=== PATIENT | male | born 1955 | race Caucasian/White ===

== ENCOUNTER 2022-02-20 10:22 | Inpatient (IN) ==
[2022-02-20] MEDS ORDERED: 0.9 % Sodium Chloride 1,000 ML IV ONE ×2 (10:39→11:31)
[2022-02-20 11:15] LABS: Basophils % 0.3 %; Hematocrit 38.7 % (37.5-50.1); Hemoglobin 12.8 g/dL (12.9-16.9); Immature Granulocytes % 0.9 % (0-4); Lymphocytes # 1.2 K/mcL (0.6-4.6); Lymphocytes % 7.9 %; Mean Corpuscular HGB Conc 33.1 g/dL (31.6-35.5); Mean Corpuscular Hemoglobin 31.3 pg (28.0-33.3); Mean Corpuscular Volume 94.6 fL (83.0-100.0); Mean Platelet Volume 9.8 fL (9.4-12.4); Monocytes # 2.2 K/mcL (0.0-1.3); Monocytes % 14.6 %; Platelet Count 146 K/mcL (140-400); Red Blood Count 4.09 M/mcL (4.19-5.50); Red Cell Distribution Width 14.5 % (11.5-14.5); Segmented Neutrophils % 76.3 %; White Blood Count 14.9 K/mcL (4.3-11.1)
[2022-02-20 11:17] LABS: Neutrophils # 11.4 K/mcL (1.6-8.9)
[2022-02-20 11:22] LABS: INR 1.7; Prothrombin Time 18.4 Seconds (9.4-12.1)
[2022-02-20 11:23] LABS: Bilirubin,Urine Moderate (Negative); Blood,Urine Moderate (Negative); Clarity,Urine Turbid (Clear); Color,Urine Orange (Yellow); Glucose,Urine (UA) Normal (Normal); Ketones,Urine 80 mg/dL (Negative); Leukocyte Esterase,Urine Small (Negative); Nitrite,Urine Positive (Negative); Protein,Urine >=300 mg/dL (Neg-Trace); Specific Gravity,Urine >= 1.030 (1.010-1.025); Urobilinogen,Urine Normal (Normal)
[2022-02-20 11:25] LABS: Activated Partial Thrombo Time 40.2 Seconds (26.0-36.0)
[2022-02-20 11:30] LABS: Bacteria,Urine Many per hpf (None-Few); RBC,Urine 15-30 per hpf (0-3); Squamous Epithelial Cell,Urine Few per hpf (None-Few); WBC,Urine 50-100 per hpf (0-3)
[2022-02-20] MEDS ORDERED: cefTRIAXone 1,000 MG in 0.9 % Sodium Chloride Mini Bag 100 ML IVPB ONE (11:31)
[2022-02-20 11:34] LABS: Alanine Aminotransferase 4 Units/L (7-52); Albumin/Globulin Ratio 0.9 (1.1-2.2); Alkaline Phosphatase 65 Units/L (34-104); Aspartate Amino Transferase 9 Units/L (13-39); BUN/Creatinine Ratio 15 (6-26); Bilirubin,Total 0.9 mg/dL (0.3-1.0); Blood Urea Nitrogen 21 mg/dL (8-23); Calcium 8.4 mg/dL (8.6-10.3); Carbon Dioxide 27 mEq/L (23-29); Chloride 100 mEq/L (98-107); Globulin 3.2 g/dL (2.4-3.5); Glucose 172 mg/dL (70-105); Magnesium 1.5 mg/dL (1.6-2.6); Osmolality,Calculated 291 (280-300); Phosphorous 3.5 mg/dL (2.7-4.5); Sodium 137 mEq/L (136-145); Total Protein 6.2 g/dL (6.4-8.9); Troponin I < 0.03 ng/mL (< 0.04); eGFR For African Americans > 60 (> 60); eGFR For Non-African Americans 50 (> 60)
[2022-02-20] MEDS ORDERED: Naloxone 0.4 MG/ML INJ IVP PRN (13:43)
[2022-02-20] MEDS ORDERED: Ondansetron 4 MG/2 ML VIAL IVP PRN (13:43)
[2022-02-20] MEDS ORDERED: 0.9 % Sodium Chloride 1,000 ML IVC SCH (13:45)
[2022-02-20] MEDS ORDERED: Dextrose 4 GM Chewable Tablets PO PRN ×2 (13:47)
[2022-02-20] MEDS ORDERED: D5% in Water 1,000 ML IVC PRN (13:47)
[2022-02-20] MEDS ORDERED: *HR* Dextrose 50 % in Water (Syg) 50 ML SYRINGE IVP PRN (13:47)
[2022-02-20] MEDS: Insulin LISPRO 300 UNITS/3 ML VIAL SUBQ SCH ×2 (16:30→20:43)
[2022-02-20] MEDS: clonazePAM 0.5 MG TABLET PO PRN (18:43)
[2022-02-20] MEDS: Divalproex (24 HR) 500 MG TABLET PO SCH (20:44)
[2022-02-20] MEDS: CANNABIDIOL 100 MG/ML PO SCH (20:44)
[2022-02-20] MEDS: Apixaban 5 MG TABLET PO SCH (20:44)
[2022-02-20] MEDS: Gabapentin 300 MG CAPSULE PO SCH (20:44)
[2022-02-21 05:39] LABS: Hematocrit 32.1 % (37.5-50.1); Mean Corpuscular HGB Conc 33.3 g/dL (31.6-35.5); Mean Corpuscular Hemoglobin 31.1 pg (28.0-33.3); Mean Corpuscular Volume 93.3 fL (83.0-100.0); Mean Platelet Volume 10.1 fL (9.4-12.4); Red Blood Count 3.44 M/mcL (4.19-5.50); Red Cell Distribution Width 14.6 % (11.5-14.5)
[2022-02-21 05:41] LABS: Platelet Count 123 K/mcL (140-400)
[2022-02-21 05:42] LABS: Hemoglobin 10.7 g/dL (12.9-16.9)
[2022-02-21 05:53] LABS: BUN/Creatinine Ratio 17 (6-26); Blood Urea Nitrogen 22 mg/dL (8-23); Calcium 7.7 mg/dL (8.6-10.3); Carbon Dioxide 26 mEq/L (23-29); Chloride 104 mEq/L (98-107); Glucose 166 mg/dL (70-105); Magnesium 2.2 mg/dL (1.6-2.6); Osmolality,Calculated 287 (280-300); Potassium 3.7 mEq/L (3.5-5.1); Sodium 135 mEq/L (136-145); eGFR For African Americans > 60 (> 60); eGFR For Non-African Americans 56 (> 60)
[2022-02-21] MEDS: Divalproex (24 HR) 500 MG TABLET PO SCH ×2 (08:21→22:44)
[2022-02-21] MEDS: Insulin LISPRO 300 UNITS/3 ML VIAL SUBQ SCH ×3 (08:21→23:17)
[2022-02-21] MEDS: Apixaban 5 MG TABLET PO SCH ×2 (08:22→22:45)
[2022-02-21] MEDS: CANNABIDIOL 100 MG/ML PO SCH (08:23)
[2022-02-21] MEDS: cefTRIAXone 1,000 MG in Water for inj. (sterile) 10 ML IVP SCH (08:23)
[2022-02-21] MEDS: Tolterodine LA (24 HR) 4 MG CAP.ER.24H PO SCH (08:23)
[2022-02-21] MEDS ORDERED: Propranolol LA (24 HR) 60 MG CAP.SA.24H PO SCH (09:00)
[2022-02-21] MEDS ORDERED: 0.9 % Sodium Chloride 500 ML IV ONE (16:54)
[2022-02-21] MEDS: 0.9 % Sodium Chloride 1,000 ML IVC SCH (18:15)
[2022-02-21 19:51] LABS: Estimated Average Glucose 148 mg/dl; Hemoglobin A1C 6.8 %
[2022-02-21] MEDS: hydrOXYzine pamoate 25 MG CAPSULE PO PRN (22:45)
[2022-02-21] MEDS: Gabapentin 300 MG CAPSULE PO SCH (22:46)
[2022-02-21] MEDS: clonazePAM 0.5 MG TABLET PO PRN (22:46)
[2022-02-21] MEDS: Acetaminophen 325 MG TABLET PO PRN (22:47)
[2022-02-22] MEDS: CANNABIDIOL 100 MG/ML PO SCH ×3 (01:00→22:00)
[2022-02-22] MEDS: 0.9 % Sodium Chloride 1,000 ML IVC SCH ×2 (03:04→17:33)
[2022-02-22 04:51] LABS: Basophils % 0.5 %; Eosinophils # 0.1 K/mcL (0.0-0.6); Eosinophils % 1.4 %; Hematocrit 36.9 % (37.5-50.1); Immature Granulocytes % 1.7 % (0-4); Lymphocytes # 0.9 K/mcL (0.6-4.6); Lymphocytes % 14.1 %; Mean Corpuscular HGB Conc 33.1 g/dL (31.6-35.5); Mean Corpuscular Hemoglobin 31.1 pg (28.0-33.3); Mean Corpuscular Volume 94.1 fL (83.0-100.0); Mean Platelet Volume 10.2 fL (9.4-12.4); Monocytes % 15.3 %; Neutrophils # 4.5 K/mcL (1.6-8.9); Red Blood Count 3.92 M/mcL (4.19-5.50); Red Cell Distribution Width 14.5 % (11.5-14.5); White Blood Count 6.7 K/mcL (4.3-11.1)
[2022-02-22 04:58] LABS: Hemoglobin 12.2 g/dL (12.9-16.9); Platelet Count 123 K/mcL (140-400)
[2022-02-22 04:59] LABS: Platelet Estimate Slight Decrease (Normal)
[2022-02-22 05:05] LABS: BUN/Creatinine Ratio 16 (6-26); Blood Urea Nitrogen 19 mg/dL (8-23); Calcium 8.3 mg/dL (8.6-10.3); Carbon Dioxide 30 mEq/L (23-29); Chloride 105 mEq/L (98-107); Glucose 234 mg/dL (70-105); Osmolality,Calculated 300 (280-300); Potassium 4.4 mEq/L (3.5-5.1); Sodium 140 mEq/L (136-145); eGFR For African Americans > 60 (> 60); eGFR For Non-African Americans > 60 (> 60)
[2022-02-22] MEDS: Insulin LISPRO 300 UNITS/3 ML VIAL SUBQ SCH ×4 (09:02→21:30)
[2022-02-22] MEDS: Tolterodine LA (24 HR) 4 MG CAP.ER.24H PO SCH (09:15)
[2022-02-22] MEDS: Divalproex (24 HR) 500 MG TABLET PO SCH ×2 (09:16→21:55)
[2022-02-22] MEDS: cefTRIAXone 1,000 MG in Water for inj. (sterile) 10 ML IVP SCH (09:16)
[2022-02-22] MEDS: Apixaban 5 MG TABLET PO SCH ×2 (09:16→21:47)
[2022-02-22] MEDS: Acetaminophen 325 MG TABLET PO PRN ×2 (09:20→21:50)
[2022-02-22] MEDS: Ertapenem 1,000 MG in 0.9 % Sodium Chloride Mini Bag 100 ML IVPB SCH (13:47)
[2022-02-22] MEDS: clonazePAM 0.5 MG TABLET PO PRN (21:48)
[2022-02-22] MEDS: Gabapentin 300 MG CAPSULE PO SCH (21:55)
[2022-02-22] MEDS: hydrOXYzine pamoate 25 MG CAPSULE PO PRN (21:57)
[2022-02-23] MEDS: 0.9 % Sodium Chloride 1,000 ML IVC SCH ×2 (06:51→21:44)
[2022-02-23] MEDS: Ertapenem 1,000 MG in 0.9 % Sodium Chloride Mini Bag 100 ML IVPB SCH (07:46)
[2022-02-23] MEDS: Divalproex (24 HR) 500 MG TABLET PO SCH ×2 (07:47→20:37)
[2022-02-23] MEDS: Acetaminophen 325 MG TABLET PO PRN ×2 (07:47→20:37)
[2022-02-23] MEDS: Apixaban 5 MG TABLET PO SCH ×2 (07:47→20:38)
[2022-02-23] MEDS: Tolterodine LA (24 HR) 4 MG CAP.ER.24H PO SCH (07:48)
[2022-02-23] MEDS: CANNABIDIOL 100 MG/ML PO SCH ×2 (07:49→21:44)
[2022-02-23] MEDS: Insulin LISPRO 300 UNITS/3 ML VIAL SUBQ SCH ×4 (07:49→20:38)
[2022-02-23 12:08] LABS: Basophils % 0.4 %; Eosinophils # 0.1 K/mcL (0.0-0.6); Eosinophils % 2.3 %; Hematocrit 29.2 % (37.5-50.1); Hemoglobin 9.8 g/dL (12.9-16.9); Immature Granulocytes % 0.8 % (0-4); Lymphocytes # 0.6 K/mcL (0.6-4.6); Lymphocytes % 12.7 %; Mean Corpuscular HGB Conc 33.6 g/dL (31.6-35.5); Mean Corpuscular Hemoglobin 31.4 pg (28.0-33.3); Mean Corpuscular Volume 93.6 fL (83.0-100.0); Mean Platelet Volume 10.4 fL (9.4-12.4); Monocytes # 0.7 K/mcL (0.0-1.3); Monocytes % 14.8 %; Neutrophils # 3.3 K/mcL (1.6-8.9); Platelet Count 121 K/mcL (140-400); Red Blood Count 3.12 M/mcL (4.19-5.50); Red Cell Distribution Width 14.9 % (11.5-14.5); White Blood Count 4.7 K/mcL (4.3-11.1)
[2022-02-23 13:49] LABS: BUN/Creatinine Ratio 15 (6-26); Blood Urea Nitrogen 15 mg/dL (8-23); Calcium 7.5 mg/dL (8.6-10.3); Carbon Dioxide 26 mEq/L (23-29); Chloride 108 mEq/L (98-107); Glucose 275 mg/dL (70-105); Magnesium 1.8 mg/dL (1.6-2.6); Osmolality,Calculated 301 (280-300); Potassium 4.1 mEq/L (3.5-5.1); Sodium 140 mEq/L (136-145); eGFR For African Americans > 60 (> 60); eGFR For Non-African Americans > 60 (> 60)
[2022-02-23] MEDS: Magnesium Oxide 400 MG TABLET PO SCH (16:52)
[2022-02-23] MEDS: Gabapentin 300 MG CAPSULE PO SCH (20:35)
[2022-02-23] MEDS: clonazePAM 0.5 MG TABLET PO PRN (20:38)
[2022-02-24] MEDS: Ertapenem 1,000 MG in 0.9 % Sodium Chloride Mini Bag 100 ML IVPB SCH (08:47)
[2022-02-24] MEDS: Divalproex (24 HR) 500 MG TABLET PO SCH (08:49)
[2022-02-24] MEDS: Tolterodine LA (24 HR) 4 MG CAP.ER.24H PO SCH (08:49)
[2022-02-24] MEDS: Apixaban 5 MG TABLET PO SCH (08:49)
[2022-02-24] MEDS: Magnesium Oxide 400 MG TABLET PO SCH (08:49)
[2022-02-24] MEDS: Insulin LISPRO 300 UNITS/3 ML VIAL SUBQ SCH ×3 (08:51→16:37)
[2022-02-24] MEDS ORDERED: *HR* Metformin 500 MG TABLET PO SCH (11:15)
[2022-02-24] MEDS: CANNABIDIOL 100 MG/ML PO SCH (11:30)
[2022-02-24 11:37] LABS: Basophils % 0.3 %; Eosinophils # 0.1 K/mcL (0.0-0.6); Eosinophils % 2.2 %; Hematocrit 31.3 % (37.5-50.1); Hemoglobin 10.1 g/dL (12.9-16.9); Lymphocytes # 0.7 K/mcL (0.6-4.6); Lymphocytes % 11.4 %; Mean Corpuscular HGB Conc 32.3 g/dL (31.6-35.5); Mean Platelet Volume 9.6 fL (9.4-12.4); Monocytes # 0.9 K/mcL (0.0-1.3); Neutrophils # 4.1 K/mcL (1.6-8.9); Platelet Count 133 K/mcL (140-400); Red Blood Count 3.26 M/mcL (4.19-5.50); Segmented Neutrophils % 70.1 %; White Blood Count 5.8 K/mcL (4.3-11.1)
[2022-02-24 11:52] LABS: BUN/Creatinine Ratio 14 (6-26); Blood Urea Nitrogen 14 mg/dL (8-23); Calcium 7.7 mg/dL (8.6-10.3); Carbon Dioxide 29 mEq/L (23-29); Chloride 106 mEq/L (98-107); Glucose 342 mg/dL (70-105); Magnesium 1.7 mg/dL (1.6-2.6); Osmolality,Calculated 302 (280-300); Potassium 4.2 mEq/L (3.5-5.1); Sodium 139 mEq/L (136-145); eGFR For African Americans > 60 (> 60); eGFR For Non-African Americans > 60 (> 60)
[2022-02-24] MEDS: 0.9 % Sodium Chloride 1,000 ML IVC SCH (12:45)
[2022-02-24 13:14] VITALS: TEMP 98.3
[2022-02-24 16:37] VITALS: BP 115/73; PULSE 62; RESP 16; O2SAT 91
== END 2022-02-24 16:42 | DRG 872 ==
LOC: EMEROOGRE 10:22 → INPGRE 10:22
PROVIDERS: ADMIT Family Medicine; ATTEND Family Medicine

== ENCOUNTER 2022-02-24 15:07 | Inpatient (IN) ==
[2022-02-24] MEDS: Acetaminophen 325 MG TABLET PO PRN (17:56)
[2022-02-24] MEDS: Apixaban 5 MG TABLET PO SCH (20:10)
[2022-02-24] MEDS: Divalproex (24 HR) 500 MG TABLET PO SCH (20:10)
[2022-02-24] MEDS: clonazePAM 0.5 MG TABLET PO PRN (20:31)
[2022-02-24] MEDS ORDERED: Gabapentin 300 MG CAPSULE PO SCH (21:00)
[2022-02-25] MEDS: Acetaminophen 325 MG TABLET PO PRN (00:01)
[2022-02-25] MEDS: CANNABIDIOL 100 MG/ML PO SCH ×3 (03:51→21:48)
[2022-02-25 06:24] LABS: Basophils % 0.6 %; Eosinophils # 0.1 K/mcL (0.0-0.6); Eosinophils % 2.9 %; Hematocrit 29.3 % (37.5-50.1); Hemoglobin 9.8 g/dL (12.9-16.9); Immature Granulocytes % 0.8 % (0-4); Mean Corpuscular HGB Conc 33.4 g/dL (31.6-35.5); Mean Corpuscular Hemoglobin 31.2 pg (28.0-33.3); Mean Corpuscular Volume 93.3 fL (83.0-100.0); Mean Platelet Volume 10.5 fL (9.4-12.4); Monocytes # 0.7 K/mcL (0.0-1.3); Neutrophils # 2.9 K/mcL (1.6-8.9); Platelet Count 138 K/mcL (140-400); Red Blood Count 3.14 M/mcL (4.19-5.50); Red Cell Distribution Width 14.8 % (11.5-14.5); Segmented Neutrophils % 60.7 %; White Blood Count 4.8 K/mcL (4.3-11.1)
[2022-02-25 06:52] LABS: BUN/Creatinine Ratio 14 (6-26); Blood Urea Nitrogen 14 mg/dL (8-23); Calcium 7.7 mg/dL (8.6-10.3); Carbon Dioxide 30 mEq/L (23-29); Chloride 107 mEq/L (98-107); Glucose 321 mg/dL (70-105); Osmolality,Calculated 301 (280-300); Potassium 4.2 mEq/L (3.5-5.1); Sodium 139 mEq/L (136-145); eGFR For African Americans > 60 (> 60); eGFR For Non-African Americans > 60 (> 60)
[2022-02-25] MEDS: Tolterodine LA (24 HR) 4 MG CAP.ER.24H PO SCH (09:21)
[2022-02-25] MEDS: *HR* Metformin 500 MG TABLET PO SCH (09:21)
[2022-02-25] MEDS: Apixaban 5 MG TABLET PO SCH ×2 (09:21→21:43)
[2022-02-25] MEDS: Magnesium Oxide 400 MG TABLET PO SCH (09:22)
[2022-02-25] MEDS: GlipiZIDE 5 MG TABLET PO SCH ×2 (09:22→18:51)
[2022-02-25] MEDS: Divalproex (24 HR) 500 MG TABLET PO SCH ×2 (09:22→21:46)
[2022-02-25] MEDS: Ertapenem 1,000 MG in 0.9 % Sodium Chloride Mini Bag 100 ML IVPB SCH (09:25)
[2022-02-25] MEDS: clonazePAM 0.5 MG TABLET PO PRN (22:04)
[2022-02-26] MEDS: Acetaminophen 325 MG TABLET PO PRN ×2 (05:41→22:01)
[2022-02-26] MEDS: Tolterodine LA (24 HR) 4 MG CAP.ER.24H PO SCH (09:30)
[2022-02-26] MEDS: Magnesium Oxide 400 MG TABLET PO SCH (09:30)
[2022-02-26] MEDS: *HR* Metformin 500 MG TABLET PO SCH (09:30)
[2022-02-26] MEDS: Divalproex (24 HR) 500 MG TABLET PO SCH ×2 (09:30→22:00)
[2022-02-26] MEDS: GlipiZIDE 5 MG TABLET PO SCH ×2 (09:30→16:02)
[2022-02-26] MEDS: Ertapenem 1,000 MG in 0.9 % Sodium Chloride Mini Bag 100 ML IVPB SCH (09:31)
[2022-02-26] MEDS: Apixaban 5 MG TABLET PO SCH ×2 (09:31→21:59)
[2022-02-26] MEDS: CANNABIDIOL 100 MG/ML PO SCH ×2 (09:34→22:40)
[2022-02-26] MEDS: clonazePAM 0.5 MG TABLET PO PRN ×2 (09:38→21:55)
[2022-02-26] MEDS: hydrOXYzine pamoate 25 MG CAPSULE PO PRN (21:55)
[2022-02-27] MEDS: Tolterodine LA (24 HR) 4 MG CAP.ER.24H PO SCH (08:50)
[2022-02-27] MEDS: Ertapenem 1,000 MG in 0.9 % Sodium Chloride Mini Bag 100 ML IVPB SCH (08:50)
[2022-02-27] MEDS: GlipiZIDE 5 MG TABLET PO SCH ×2 (08:50→16:06)
[2022-02-27] MEDS: Divalproex (24 HR) 500 MG TABLET PO SCH ×2 (08:50→21:56)
[2022-02-27] MEDS: *HR* Metformin 500 MG TABLET PO SCH (08:51)
[2022-02-27] MEDS: Apixaban 5 MG TABLET PO SCH ×2 (08:51→21:56)
[2022-02-27] MEDS: CANNABIDIOL 100 MG/ML PO SCH ×2 (08:51→21:59)
[2022-02-27] MEDS: Acetaminophen 325 MG TABLET PO PRN ×2 (10:14→21:56)
[2022-02-27] MEDS: Magnesium Oxide 400 MG TABLET PO SCH (10:14)
[2022-02-27] MEDS: clonazePAM 0.5 MG TABLET PO PRN (21:56)
[2022-02-27] MEDS: hydrOXYzine pamoate 25 MG CAPSULE PO PRN (21:56)
[2022-02-28] MEDS: GlipiZIDE 5 MG TABLET PO SCH ×2 (08:47→16:56)
[2022-02-28] MEDS: *HR* Metformin 500 MG TABLET PO SCH (08:48)
[2022-02-28] MEDS: Divalproex (24 HR) 500 MG TABLET PO SCH ×2 (08:48→22:22)
[2022-02-28] MEDS: Tolterodine LA (24 HR) 4 MG CAP.ER.24H PO SCH (08:48)
[2022-02-28] MEDS: Apixaban 5 MG TABLET PO SCH ×2 (08:48→22:21)
[2022-02-28] MEDS: Magnesium Oxide 400 MG TABLET PO SCH (08:48)
[2022-02-28] MEDS: Ertapenem 1,000 MG in 0.9 % Sodium Chloride Mini Bag 100 ML IVPB SCH (08:49)
[2022-02-28] MEDS: CANNABIDIOL 100 MG/ML PO SCH (08:49)
[2022-02-28] MEDS: Acetaminophen 325 MG TABLET PO PRN ×3 (08:59→22:21)
[2022-02-28] MEDS: clonazePAM 0.5 MG TABLET PO PRN (22:22)
[2022-02-28] MEDS: hydrOXYzine pamoate 25 MG CAPSULE PO PRN (22:22)
[2022-03-01] MEDS: CANNABIDIOL 100 MG/ML PO SCH ×3 (02:22→20:42)
[2022-03-01 04:54] LABS: Hematocrit 29.1 % (37.5-50.1); Hemoglobin 9.7 g/dL (12.9-16.9); Mean Corpuscular HGB Conc 33.3 g/dL (31.6-35.5); Mean Platelet Volume 9.8 fL (9.4-12.4); Red Blood Count 3.13 M/mcL (4.19-5.50); Red Cell Distribution Width 14.6 % (11.5-14.5); White Blood Count 7.3 K/mcL (4.3-11.1)
[2022-03-01 04:55] LABS: Platelet Count 223 K/mcL (140-400)
[2022-03-01 05:13] LABS: Alanine Aminotransferase 9 Units/L (7-52); Albumin 2.3 g/dL (3.5-5.7); Albumin/Globulin Ratio 0.8 (1.1-2.2); Alkaline Phosphatase 70 Units/L (34-104); Aspartate Amino Transferase 13 Units/L (13-39); BUN/Creatinine Ratio 20 (6-26); Bilirubin,Total 0.3 mg/dL (0.3-1.0); Blood Urea Nitrogen 19 mg/dL (8-23); Calcium 7.9 mg/dL (8.6-10.3); Carbon Dioxide 30 mEq/L (23-29); Chloride 105 mEq/L (98-107); Globulin 2.8 g/dL (2.4-3.5); Glucose 166 mg/dL (70-105); Magnesium 1.5 mg/dL (1.6-2.6); Osmolality,Calculated 294 (280-300); Potassium 4.1 mEq/L (3.5-5.1); Sodium 139 mEq/L (136-145); Total Protein 5.1 g/dL (6.4-8.9); eGFR For African Americans > 60 (> 60); eGFR For Non-African Americans > 60 (> 60)
[2022-03-01] MEDS: Ertapenem 1,000 MG in 0.9 % Sodium Chloride Mini Bag 100 ML IVPB SCH (08:42)
[2022-03-01] MEDS: GlipiZIDE 5 MG TABLET PO SCH ×3 (08:42→18:55)
[2022-03-01] MEDS: Magnesium Oxide 400 MG TABLET PO SCH (08:43)
[2022-03-01] MEDS: Apixaban 5 MG TABLET PO SCH ×2 (08:43→20:38)
[2022-03-01] MEDS: Tolterodine LA (24 HR) 4 MG CAP.ER.24H PO SCH (08:43)
[2022-03-01] MEDS: Acetaminophen 325 MG TABLET PO PRN ×2 (08:43→20:44)
[2022-03-01] MEDS: Divalproex (24 HR) 500 MG TABLET PO SCH ×2 (08:43→20:37)
[2022-03-01] MEDS: *HR* Metformin 500 MG TABLET PO SCH (08:44)
[2022-03-01] MEDS: clonazePAM 0.5 MG TABLET PO PRN (20:37)
[2022-03-01] MEDS: hydrOXYzine pamoate 25 MG CAPSULE PO PRN (20:38)
[2022-03-02] MEDS: Apixaban 5 MG TABLET PO SCH ×2 (08:52→19:45)
[2022-03-02] MEDS: Acetaminophen 325 MG TABLET PO PRN ×2 (08:52→17:10)
[2022-03-02] MEDS: Divalproex (24 HR) 500 MG TABLET PO SCH ×2 (08:52→19:44)
[2022-03-02] MEDS: *HR* Metformin 500 MG TABLET PO SCH (08:53)
[2022-03-02] MEDS: GlipiZIDE 5 MG TABLET PO SCH ×2 (08:53→17:10)
[2022-03-02] MEDS: Magnesium Oxide 400 MG TABLET PO SCH (08:53)
[2022-03-02] MEDS: Tolterodine LA (24 HR) 4 MG CAP.ER.24H PO SCH (08:54)
[2022-03-02] MEDS: Ertapenem 1,000 MG in 0.9 % Sodium Chloride Mini Bag 100 ML IVPB SCH (09:07)
[2022-03-02] MEDS: CANNABIDIOL 100 MG/ML PO SCH ×2 (09:09→19:50)
[2022-03-02] MEDS: Fluconazole 100 MG TABLET PO SCH (12:07)
[2022-03-02] MEDS: Nystatin Ointment 15 GM TUBE TP SCH ×3 (12:08→19:46)
[2022-03-02] MEDS: hydrOXYzine pamoate 25 MG CAPSULE PO PRN (19:45)
[2022-03-02] MEDS: clonazePAM 0.5 MG TABLET PO PRN (19:45)
[2022-03-03] MEDS: Apixaban 5 MG TABLET PO SCH ×2 (08:37→21:13)
[2022-03-03] MEDS: Fluconazole 100 MG TABLET PO SCH (08:37)
[2022-03-03] MEDS: Tolterodine LA (24 HR) 4 MG CAP.ER.24H PO SCH (08:37)
[2022-03-03] MEDS: Divalproex (24 HR) 500 MG TABLET PO SCH ×2 (08:37→21:13)
[2022-03-03] MEDS: GlipiZIDE 5 MG TABLET PO SCH ×2 (08:37→17:46)
[2022-03-03] MEDS: Magnesium Oxide 400 MG TABLET PO SCH (08:37)
[2022-03-03] MEDS: Nystatin Ointment 15 GM TUBE TP SCH ×4 (08:45→21:28)
[2022-03-03] MEDS: Ertapenem 1,000 MG in 0.9 % Sodium Chloride Mini Bag 100 ML IVPB SCH (08:45)
[2022-03-03] MEDS ORDERED: Ibuprofen 600 MG TABLET PO PRN (09:06)
[2022-03-03 11:22] LABS: Hematocrit 31.6 % (37.5-50.1); Hemoglobin 10.7 g/dL (12.9-16.9); Mean Corpuscular HGB Conc 33.9 g/dL (31.6-35.5); Mean Corpuscular Hemoglobin 31.5 pg (28.0-33.3); Mean Corpuscular Volume 92.9 fL (83.0-100.0); Mean Platelet Volume 9.6 fL (9.4-12.4); Platelet Count 257 K/mcL (140-400); Red Cell Distribution Width 14.6 % (11.5-14.5); White Blood Count 7.2 K/mcL (4.3-11.1)
[2022-03-03 11:40] LABS: BUN/Creatinine Ratio 22 (6-26); Blood Urea Nitrogen 23 mg/dL (8-23); Calcium 7.9 mg/dL (8.6-10.3); Carbon Dioxide 29 mEq/L (23-29); Chloride 103 mEq/L (98-107); Glucose 121 mg/dL (70-105); Osmolality,Calculated 293 (280-300); Potassium 4.3 mEq/L (3.5-5.1); Sodium 139 mEq/L (136-145); eGFR For African Americans > 60 (> 60); eGFR For Non-African Americans > 60 (> 60)
[2022-03-03] MEDS: *HR* HYDROcodone/Acet 5/325 mg TABLET PO PRN (14:17)
[2022-03-03] MEDS: *HR* Metformin 500 MG TABLET PO SCH (17:38)
[2022-03-03] MEDS: CANNABIDIOL 100 MG/ML PO SCH ×2 (17:38→21:45)
[2022-03-03] MEDS: Acetaminophen 325 MG TABLET PO PRN (17:46)
[2022-03-03 19:06] LABS: C-Reactive Protein 56 mg/L (Less than 10)
[2022-03-04] MEDS: Fluconazole 100 MG TABLET PO SCH (10:42)
[2022-03-04] MEDS: GlipiZIDE 5 MG TABLET PO SCH ×2 (10:42→17:40)
[2022-03-04] MEDS: Magnesium Oxide 400 MG TABLET PO SCH (10:42)
[2022-03-04] MEDS: Apixaban 5 MG TABLET PO SCH ×2 (10:42→22:08)
[2022-03-04] MEDS: Tolterodine LA (24 HR) 4 MG CAP.ER.24H PO SCH (10:42)
[2022-03-04] MEDS: Divalproex (24 HR) 500 MG TABLET PO SCH ×2 (10:42→22:08)
[2022-03-04] MEDS: *HR* Metformin 500 MG TABLET PO SCH (10:42)
[2022-03-04] MEDS: CANNABIDIOL 100 MG/ML PO SCH ×2 (10:43→22:10)
[2022-03-04] MEDS: Ertapenem 1,000 MG in 0.9 % Sodium Chloride Mini Bag 100 ML IVPB SCH (10:43)
[2022-03-04] MEDS: Nystatin Ointment 15 GM TUBE TP SCH ×4 (11:04→22:10)
[2022-03-05] MEDS: clonazePAM 0.5 MG TABLET PO PRN ×2 (06:17→21:33)
[2022-03-05] MEDS: CANNABIDIOL 100 MG/ML PO SCH ×2 (08:10→21:33)
[2022-03-05] MEDS: GlipiZIDE 5 MG TABLET PO SCH ×2 (08:10→16:42)
[2022-03-05] MEDS: *HR* Metformin 500 MG TABLET PO SCH (08:10)
[2022-03-05] MEDS: Apixaban 5 MG TABLET PO SCH ×2 (08:30→21:34)
[2022-03-05] MEDS: Magnesium Oxide 400 MG TABLET PO SCH (08:30)
[2022-03-05] MEDS: Tolterodine LA (24 HR) 4 MG CAP.ER.24H PO SCH (08:30)
[2022-03-05] MEDS: Fluconazole 100 MG TABLET PO SCH (08:30)
[2022-03-05] MEDS: Ertapenem 1,000 MG in 0.9 % Sodium Chloride Mini Bag 100 ML IVPB SCH (08:31)
[2022-03-05] MEDS: Nystatin Ointment 15 GM TUBE TP SCH ×4 (08:31→16:42)
[2022-03-05] MEDS: Divalproex (24 HR) 500 MG TABLET PO SCH ×2 (08:31→21:34)
[2022-03-05] MEDS: hydrOXYzine pamoate 25 MG CAPSULE PO PRN (16:37)
[2022-03-06] MEDS: Nystatin Ointment 15 GM TUBE TP SCH ×4 (01:00→21:39)
[2022-03-06] MEDS: Magnesium Oxide 400 MG TABLET PO SCH (08:58)
[2022-03-06] MEDS: Divalproex (24 HR) 500 MG TABLET PO SCH ×2 (08:59→21:37)
[2022-03-06] MEDS: hydrOXYzine pamoate 25 MG CAPSULE PO PRN (08:59)
[2022-03-06] MEDS: *HR* Metformin 500 MG TABLET PO SCH (08:59)
[2022-03-06] MEDS: Tolterodine LA (24 HR) 4 MG CAP.ER.24H PO SCH (08:59)
[2022-03-06] MEDS: Acetaminophen 325 MG TABLET PO PRN ×3 (08:59→22:53)
[2022-03-06] MEDS: Apixaban 5 MG TABLET PO SCH ×2 (08:59→21:37)
[2022-03-06] MEDS: CANNABIDIOL 100 MG/ML PO SCH ×2 (09:00→21:39)
[2022-03-06] MEDS: GlipiZIDE 5 MG TABLET PO SCH ×2 (09:00→20:54)
[2022-03-06 11:58] LABS: Bilirubin,Urine Negative (Negative); Blood,Urine Negative (Negative); Clarity,Urine Clear (Clear); Color,Urine Yellow (Yellow); Glucose,Urine (UA) Normal (Normal); Ketones,Urine Negative (Negative); Leukocyte Esterase,Urine Trace (Negative); Nitrite,Urine Negative (Negative); PH,Urine 8.5 pH Units (5.0-8.0); Protein,Urine Negative (Neg-Trace); Urobilinogen,Urine Normal (Normal)
[2022-03-06 13:41] LABS: Bacteria,Urine Few per hpf (None-Few)
[2022-03-06 14:16] LABS: Basophils % 0.4 %; Eosinophils # 0.2 K/mcL (0.0-0.6); Eosinophils % 1.8 %; Hematocrit 34.1 % (37.5-50.1); Hemoglobin 11.4 g/dL (12.9-16.9); Immature Granulocytes % 0.4 % (0-4); Lymphocytes # 1.4 K/mcL (0.6-4.6); Lymphocytes % 15.8 %; Mean Corpuscular HGB Conc 33.4 g/dL (31.6-35.5); Mean Corpuscular Hemoglobin 31.3 pg (28.0-33.3); Mean Corpuscular Volume 93.7 fL (83.0-100.0); Mean Platelet Volume 9.7 fL (9.4-12.4); Monocytes # 0.5 K/mcL (0.0-1.3); Neutrophils # 6.8 K/mcL (1.6-8.9); Platelet Count 292 K/mcL (140-400); Red Blood Count 3.64 M/mcL (4.19-5.50); Red Cell Distribution Width 14.6 % (11.5-14.5); Segmented Neutrophils % 75.6 %
[2022-03-06 14:32] LABS: Alanine Aminotransferase 8 Units/L (7-52); Albumin 2.8 g/dL (3.5-5.7); Albumin/Globulin Ratio 0.8 (1.1-2.2); Alkaline Phosphatase 78 Units/L (34-104); Aspartate Amino Transferase 13 Units/L (13-39); BUN/Creatinine Ratio 21 (6-26); Bilirubin,Total 0.5 mg/dL (0.3-1.0); Blood Urea Nitrogen 28 mg/dL (8-23); Carbon Dioxide 31 mEq/L (23-29); Chloride 100 mEq/L (98-107); Globulin 3.3 g/dL (2.4-3.5); Glucose 160 mg/dL (70-105); Osmolality,Calculated 291 (280-300); Potassium 5.2 mEq/L (3.5-5.1); Sodium 136 mEq/L (136-145); Total Protein 6.1 g/dL (6.4-8.9); eGFR For African Americans > 60 (> 60); eGFR For Non-African Americans 54 (> 60)
[2022-03-06] MEDS ORDERED: 0.9 % Sodium Chloride 1,000 ML IVC SCH (15:45)
[2022-03-06] MEDS: clonazePAM 0.5 MG TABLET PO PRN (21:37)
[2022-03-07 05:07] LABS: Basophils % 0.7 %; Eosinophils # 0.2 K/mcL (0.0-0.6); Eosinophils % 3.6 %; Hematocrit 29.7 % (37.5-50.1); Hemoglobin 9.8 g/dL (12.9-16.9); Immature Granulocytes % 0.5 % (0-4); Lymphocytes # 1.5 K/mcL (0.6-4.6); Lymphocytes % 26.1 %; Mean Platelet Volume 10.1 fL (9.4-12.4); Monocytes # 0.5 K/mcL (0.0-1.3); Monocytes % 9.1 %; Neutrophils # 3.4 K/mcL (1.6-8.9); Platelet Count 234 K/mcL (140-400); Red Blood Count 3.16 M/mcL (4.19-5.50); Red Cell Distribution Width 14.6 % (11.5-14.5); White Blood Count 5.6 K/mcL (4.3-11.1)
[2022-03-07 05:21] LABS: BUN/Creatinine Ratio 22 (6-26); Blood Urea Nitrogen 30 mg/dL (8-23); Calcium 8.6 mg/dL (8.6-10.3); Carbon Dioxide 30 mEq/L (23-29); Chloride 104 mEq/L (98-107); Glucose 124 mg/dL (70-105); Osmolality,Calculated 294 (280-300); Potassium 4.9 mEq/L (3.5-5.1); Sodium 138 mEq/L (136-145); eGFR For African Americans > 60 (> 60); eGFR For Non-African Americans 52 (> 60)
[2022-03-07] MEDS: Divalproex (24 HR) 500 MG TABLET PO SCH ×2 (07:56→20:26)
[2022-03-07] MEDS: Apixaban 5 MG TABLET PO SCH ×2 (07:56→20:26)
[2022-03-07] MEDS: *HR* Metformin 500 MG TABLET PO SCH (07:56)
[2022-03-07] MEDS: Magnesium Oxide 400 MG TABLET PO SCH (07:56)
[2022-03-07] MEDS: Tolterodine LA (24 HR) 4 MG CAP.ER.24H PO SCH (07:56)
[2022-03-07] MEDS: GlipiZIDE 5 MG TABLET PO SCH ×2 (07:57→16:45)
[2022-03-07] MEDS: Nystatin Ointment 15 GM TUBE TP SCH ×4 (07:57→20:27)
[2022-03-07] MEDS: CANNABIDIOL 100 MG/ML PO SCH ×2 (07:57→20:27)
[2022-03-07] MEDS: 0.9 % Sodium Chloride 1,000 ML IVC SCH ×2 (11:49→20:28)
[2022-03-07] MEDS: Acetaminophen 325 MG TABLET PO PRN (11:56)
[2022-03-07] MEDS: *HR* HYDROcodone/Acet 5/325 mg TABLET PO PRN (20:26)
[2022-03-07] MEDS: hydrOXYzine pamoate 25 MG CAPSULE PO PRN (20:26)
[2022-03-07] MEDS: clonazePAM 0.5 MG TABLET PO PRN (20:26)
[2022-03-08 05:19] LABS: Basophils % 0.6 %; Eosinophils # 0.2 K/mcL (0.0-0.6); Eosinophils % 4.7 %; Hematocrit 29.7 % (37.5-50.1); Hemoglobin 9.6 g/dL (12.9-16.9); Immature Granulocytes % 0.6 % (0-4); Lymphocytes # 1.4 K/mcL (0.6-4.6); Lymphocytes % 27.7 %; Mean Corpuscular HGB Conc 32.3 g/dL (31.6-35.5); Mean Corpuscular Hemoglobin 30.9 pg (28.0-33.3); Mean Corpuscular Volume 95.5 fL (83.0-100.0); Mean Platelet Volume 10.1 fL (9.4-12.4); Monocytes # 0.4 K/mcL (0.0-1.3); Monocytes % 8.6 %; Neutrophils # 2.8 K/mcL (1.6-8.9); Platelet Count 243 K/mcL (140-400); Red Blood Count 3.11 M/mcL (4.19-5.50); Red Cell Distribution Width 14.7 % (11.5-14.5); Segmented Neutrophils % 57.8 %; White Blood Count 4.9 K/mcL (4.3-11.1)
[2022-03-08 05:30] LABS: BUN/Creatinine Ratio 23 (6-26); Blood Urea Nitrogen 29 mg/dL (8-23); Calcium 8.9 mg/dL (8.6-10.3); Carbon Dioxide 32 mEq/L (23-29); Chloride 105 mEq/L (98-107); Glucose 128 mg/dL (70-105); Osmolality,Calculated 297 (280-300); Potassium 5.2 mEq/L (3.5-5.1); Sodium 140 mEq/L (136-145); eGFR For African Americans > 60 (> 60); eGFR For Non-African Americans 56 (> 60)
[2022-03-08] MEDS: CANNABIDIOL 100 MG/ML PO SCH ×2 (07:31→20:47)
[2022-03-08] MEDS: GlipiZIDE 5 MG TABLET PO SCH ×2 (07:31→17:21)
[2022-03-08] MEDS: Divalproex (24 HR) 500 MG TABLET PO SCH ×2 (09:02→20:46)
[2022-03-08] MEDS: Magnesium Oxide 400 MG TABLET PO SCH (09:02)
[2022-03-08] MEDS: Apixaban 5 MG TABLET PO SCH ×2 (09:02→20:45)
[2022-03-08] MEDS: Nystatin Ointment 15 GM TUBE TP SCH ×4 (09:02→20:47)
[2022-03-08] MEDS: Tolterodine LA (24 HR) 4 MG CAP.ER.24H PO SCH (09:02)
[2022-03-08] MEDS: *HR* Metformin 500 MG TABLET PO SCH (09:02)
[2022-03-08] MEDS: clonazePAM 0.5 MG TABLET PO PRN (20:46)
[2022-03-08] MEDS: hydrOXYzine pamoate 25 MG CAPSULE PO PRN (20:46)
[2022-03-08] MEDS: Acetaminophen 325 MG TABLET PO PRN (20:46)
[2022-03-09] MEDS: GlipiZIDE 5 MG TABLET PO SCH ×2 (07:32→15:47)
[2022-03-09] MEDS: Magnesium Oxide 400 MG TABLET PO SCH (09:40)
[2022-03-09] MEDS: Divalproex (24 HR) 500 MG TABLET PO SCH ×2 (09:40→20:23)
[2022-03-09] MEDS: *HR* Metformin 500 MG TABLET PO SCH (09:41)
[2022-03-09] MEDS: CANNABIDIOL 100 MG/ML PO SCH ×2 (09:41→20:24)
[2022-03-09] MEDS: Apixaban 5 MG TABLET PO SCH ×2 (09:41→20:24)
[2022-03-09] MEDS: Nystatin Ointment 15 GM TUBE TP SCH ×4 (09:42→20:24)
[2022-03-09 11:01] LABS: Basophils # 0.1 K/mcL (0.0-0.2); Basophils % 0.8 %; Eosinophils # 0.2 K/mcL (0.0-0.6); Hematocrit 33.5 % (37.5-50.1); Immature Granulocytes % 0.3 % (0-4); Lymphocytes # 1.3 K/mcL (0.6-4.6); Lymphocytes % 21.9 %; Mean Corpuscular HGB Conc 32.8 g/dL (31.6-35.5); Mean Corpuscular Hemoglobin 31.2 pg (28.0-33.3); Mean Corpuscular Volume 94.9 fL (83.0-100.0); Mean Platelet Volume 9.8 fL (9.4-12.4); Monocytes # 0.5 K/mcL (0.0-1.3); Monocytes % 7.5 %; Neutrophils # 3.9 K/mcL (1.6-8.9); Platelet Count 270 K/mcL (140-400); Red Blood Count 3.53 M/mcL (4.19-5.50); Red Cell Distribution Width 14.6 % (11.5-14.5); Segmented Neutrophils % 65.5 %
[2022-03-09 11:17] LABS: Alanine Aminotransferase 7 Units/L (7-52); Albumin 2.7 g/dL (3.5-5.7); Albumin/Globulin Ratio 0.9 (1.1-2.2); Alkaline Phosphatase 72 Units/L (34-104); Aspartate Amino Transferase 12 Units/L (13-39); BUN/Creatinine Ratio 17 (6-26); Bilirubin,Total 0.4 mg/dL (0.3-1.0); Blood Urea Nitrogen 23 mg/dL (8-23); Calcium 9.2 mg/dL (8.6-10.3); Carbon Dioxide 25 mEq/L (23-29); Chloride 105 mEq/L (98-107); Glucose 196 mg/dL (70-105); Magnesium 1.9 mg/dL (1.6-2.6); Osmolality,Calculated 299 (280-300); Sodium 140 mEq/L (136-145); Total Protein 5.7 g/dL (6.4-8.9); eGFR For African Americans > 60 (> 60); eGFR For Non-African Americans 52 (> 60)
[2022-03-09] MEDS: 0.9 % Sodium Chloride 1,000 ML IVC SCH (11:21)
[2022-03-09] MEDS: Acetaminophen 325 MG TABLET PO PRN (15:50)
[2022-03-09] MEDS: Lactobacillus 1 EACH CAP.SPRINK PO SCH (20:24)
[2022-03-10] MEDS: 0.9 % Sodium Chloride 1,000 ML IVC SCH ×2 (03:29→08:08)
[2022-03-10] MEDS: Acetaminophen 325 MG TABLET PO PRN ×2 (04:57→20:44)
[2022-03-10] MEDS: Lactobacillus 1 EACH CAP.SPRINK PO SCH ×2 (08:07→20:31)
[2022-03-10] MEDS: Apixaban 5 MG TABLET PO SCH ×2 (08:07→20:31)
[2022-03-10] MEDS: CANNABIDIOL 100 MG/ML PO SCH ×2 (08:07→20:38)
[2022-03-10] MEDS: GlipiZIDE 5 MG TABLET PO SCH ×2 (08:07→16:35)
[2022-03-10] MEDS: Magnesium Oxide 400 MG TABLET PO SCH (08:07)
[2022-03-10] MEDS: Nystatin Ointment 15 GM TUBE TP SCH ×2 (08:07→12:04)
[2022-03-10] MEDS: Divalproex (24 HR) 500 MG TABLET PO SCH ×2 (08:07→20:31)
[2022-03-10 11:04] LABS: Adenovirus F 40/41 PCR Not detected (Not detect); Astrovirus PCR Not detected (Not detect); C.difficile Toxin A/B Gene PCR Not detected (Not detect); Campylobacter by PCR Not detected (Not detect); Cryptosporidium by PCR Not detected (Not detect); Cyclospora cayetanensis PCR Not detected (Not detect); Entamoeba histolytica PCR Not detected (Not detect); Enteroaggregative E.coli(EAEC) Not detected (Not detect); Enteropathogenic E.coli(EPEC) Not detected (Not detect); Enterotoxigenic E.coli (ETEC) Not detected (Not detect); Giardia lamblia PCR Not detected (Not detect); Norovirus GI/GII PCR DETECTED (Not detect); Plesiomonas shigelloides PCR Not detected (Not detect); Rotavirus A PCR Not detected (Not detect); Salmonella PCR Not detected (Not detect); Sapovirus PCR Not detected (Not detect); Shig/EnteroinvasiveE coli EIEC Not detected (Not detect); Shigalike tox-prod E coli STEC Not detected (Not detect); Vibrio PCR Not detected (Not detect); Vibrio cholerae PCR Not detected (Not detect); Yersinia enterocolitica PCR Not detected (Not detect)
[2022-03-10] MEDS: Nystatin POWDER 30 GM BOTTLE TP SCH ×2 (15:50→20:32)
[2022-03-10] MEDS: Nystatin Cream 15 GM TUBE TP SCH ×2 (15:51→20:33)
[2022-03-10] MEDS ORDERED: 0.9 % Sodium Chloride 1,000 ML IVC SCH (16:30)
[2022-03-10] MEDS: Diphenoxylate/Atropine 1 TAB TABLET PO SCH ×2 (17:43→20:44)
[2022-03-10] MEDS ORDERED: Diphenoxylate/Atropine 1 TAB TABLET PO SCH (21:00)
[2022-03-11] MEDS: Acetaminophen 325 MG TABLET PO PRN ×3 (04:50→20:35)
[2022-03-11 06:04] LABS: Basophils % 0.5 %; Eosinophils # 0.3 K/mcL (0.0-0.6); Eosinophils % 4.8 %; Hemoglobin 9.5 g/dL (12.9-16.9); Immature Granulocytes % 0.2 % (0-4); Lymphocytes # 1.1 K/mcL (0.6-4.6); Lymphocytes % 18.6 %; Mean Corpuscular HGB Conc 32.8 g/dL (31.6-35.5); Mean Corpuscular Hemoglobin 31.3 pg (28.0-33.3); Mean Corpuscular Volume 95.4 fL (83.0-100.0); Mean Platelet Volume 9.9 fL (9.4-12.4); Monocytes # 0.6 K/mcL (0.0-1.3); Monocytes % 9.5 %; Platelet Count 206 K/mcL (140-400); Red Blood Count 3.04 M/mcL (4.19-5.50); Red Cell Distribution Width 14.6 % (11.5-14.5); Segmented Neutrophils % 66.4 %
[2022-03-11 06:26] LABS: Alanine Aminotransferase 7 Units/L (7-52); Albumin 2.5 g/dL (3.5-5.7); Albumin/Globulin Ratio 0.8 (1.1-2.2); Alkaline Phosphatase 62 Units/L (34-104); Aspartate Amino Transferase 11 Units/L (13-39); BUN/Creatinine Ratio 18 (6-26); Bilirubin,Total 0.4 mg/dL (0.3-1.0); Blood Urea Nitrogen 19 mg/dL (8-23); Calcium 8.7 mg/dL (8.6-10.3); Carbon Dioxide 28 mEq/L (23-29); Chloride 109 mEq/L (98-107); Globulin 3.1 g/dL (2.4-3.5); Glucose 129 mg/dL (70-105); Magnesium 1.7 mg/dL (1.6-2.6); Osmolality,Calculated 300 (280-300); Potassium 4.5 mEq/L (3.5-5.1); Sodium 143 mEq/L (136-145); Total Protein 5.6 g/dL (6.4-8.9); eGFR For African Americans > 60 (> 60); eGFR For Non-African Americans > 60 (> 60)
[2022-03-11] MEDS: 0.9 % Sodium Chloride 1,000 ML IVC SCH ×2 (07:20→20:00)
[2022-03-11] MEDS: Diphenoxylate/Atropine 1 TAB TABLET PO SCH ×4 (08:07→20:21)
[2022-03-11] MEDS: Divalproex (24 HR) 500 MG TABLET PO SCH ×2 (08:08→20:22)
[2022-03-11] MEDS: Magnesium Oxide 400 MG TABLET PO SCH (08:08)
[2022-03-11] MEDS: Lactobacillus 1 EACH CAP.SPRINK PO SCH ×2 (08:08→20:23)
[2022-03-11] MEDS: GlipiZIDE 5 MG TABLET PO SCH ×2 (08:08→17:11)
[2022-03-11] MEDS: Apixaban 5 MG TABLET PO SCH ×2 (08:08→20:22)
[2022-03-11] MEDS: Nystatin POWDER 30 GM BOTTLE TP SCH ×3 (08:09→20:21)
[2022-03-11] MEDS: Fluconazole 100 MG TABLET PO SCH (08:09)
[2022-03-11] MEDS: Nystatin Cream 15 GM TUBE TP SCH ×3 (08:11→20:21)
[2022-03-11] MEDS: CANNABIDIOL 100 MG/ML PO SCH ×2 (08:11→20:03)
[2022-03-12] MEDS: Acetaminophen 325 MG TABLET PO PRN ×3 (03:49→21:00)
[2022-03-12] MEDS: clonazePAM 0.5 MG TABLET PO PRN (04:11)
[2022-03-12] MEDS: *HR* Metformin 500 MG TABLET PO SCH (06:59)
[2022-03-12 07:31] LABS: Basophils % 0.4 %; Eosinophils # 0.3 K/mcL (0.0-0.6); Eosinophils % 5.6 %; Hematocrit 27.5 % (37.5-50.1); Hemoglobin 8.8 g/dL (12.9-16.9); Immature Granulocytes % 0.4 % (0-4); Lymphocytes # 1.3 K/mcL (0.6-4.6); Lymphocytes % 22.6 %; Mean Corpuscular Hemoglobin 30.8 pg (28.0-33.3); Mean Corpuscular Volume 96.2 fL (83.0-100.0); Mean Platelet Volume 10.2 fL (9.4-12.4); Monocytes # 0.5 K/mcL (0.0-1.3); Monocytes % 9.2 %; Neutrophils # 3.4 K/mcL (1.6-8.9); Platelet Count 194 K/mcL (140-400); Red Blood Count 2.86 M/mcL (4.19-5.50); Red Cell Distribution Width 14.8 % (11.5-14.5); Segmented Neutrophils % 61.8 %; White Blood Count 5.5 K/mcL (4.3-11.1)
[2022-03-12] MEDS: GlipiZIDE 5 MG TABLET PO SCH ×2 (08:07→17:38)
[2022-03-12] MEDS: 0.9 % Sodium Chloride 1,000 ML IVC SCH (08:12)
[2022-03-12] MEDS: Diphenoxylate/Atropine 1 TAB TABLET PO SCH ×2 (08:13→12:29)
[2022-03-12] MEDS: Lactobacillus 1 EACH CAP.SPRINK PO SCH ×2 (08:13→21:01)
[2022-03-12] MEDS: Apixaban 5 MG TABLET PO SCH ×2 (08:13→21:01)
[2022-03-12] MEDS: Divalproex (24 HR) 500 MG TABLET PO SCH ×2 (08:13→21:00)
[2022-03-12] MEDS: Magnesium Oxide 400 MG TABLET PO SCH (08:13)
[2022-03-12] MEDS: Fluconazole 100 MG TABLET PO SCH (08:13)
[2022-03-12] MEDS: Nystatin Cream 15 GM TUBE TP SCH ×3 (08:14→21:03)
[2022-03-12] MEDS: Nystatin POWDER 30 GM BOTTLE TP SCH ×3 (08:14→21:03)
[2022-03-12] MEDS: CANNABIDIOL 100 MG/ML PO SCH ×2 (08:14→21:03)
[2022-03-12 09:36] LABS: BUN/Creatinine Ratio 19 (6-26); Blood Urea Nitrogen 19 mg/dL (8-23); Calcium 8.4 mg/dL (8.6-10.3); Carbon Dioxide 25 mEq/L (23-29); Chloride 109 mEq/L (98-107); Glucose 88 mg/dL (70-105); Osmolality,Calculated 298 (280-300); Sodium 143 mEq/L (136-145); eGFR For African Americans > 60 (> 60); eGFR For Non-African Americans > 60 (> 60)
[2022-03-12] MEDS ORDERED: *HR* Dextrose 50 % in Water (Syg) 50 ML SYRINGE IVP PRN (11:14)
[2022-03-12] MEDS ORDERED: Dextrose 4 GM Chewable Tablets PO PRN ×2 (11:14)
[2022-03-12] MEDS ORDERED: D5% in Water 1,000 ML IVC PRN (11:14)
[2022-03-12] MEDS: Insulin LISPRO 300 UNITS/3 ML VIAL SUBQ SCH ×3 (11:39→21:04)
[2022-03-12] MEDS: predniSONE 20 MG TABLET PO SCH (12:29)
[2022-03-12] MEDS: Cholestyramine 4 GM POWD.PACK PO SCH (17:38)
[2022-03-12] MEDS ORDERED: Simethicone 80 MG TAB.CHEW PO PRN (20:06)
[2022-03-13] MEDS: Cholestyramine 4 GM POWD.PACK PO SCH (05:30)
[2022-03-13 08:14] LABS: Basophils % 0.2 %; Hematocrit 30.8 % (37.5-50.1); Immature Granulocytes % 0.4 % (0-4); Lymphocytes # 0.6 K/mcL (0.6-4.6); Lymphocytes % 11.3 %; Mean Corpuscular HGB Conc 32.5 g/dL (31.6-35.5); Mean Corpuscular Hemoglobin 30.6 pg (28.0-33.3); Mean Corpuscular Volume 94.2 fL (83.0-100.0); Mean Platelet Volume 10.5 fL (9.4-12.4); Monocytes # 0.2 K/mcL (0.0-1.3); Monocytes % 4.9 %; Neutrophils # 4.1 K/mcL (1.6-8.9); Platelet Count 206 K/mcL (140-400); Red Blood Count 3.27 M/mcL (4.19-5.50); Red Cell Distribution Width 14.5 % (11.5-14.5); Segmented Neutrophils % 83.2 %; White Blood Count 4.9 K/mcL (4.3-11.1)
[2022-03-13 08:32] LABS: BUN/Creatinine Ratio 25 (6-26); Blood Urea Nitrogen 25 mg/dL (8-23); Calcium 8.9 mg/dL (8.6-10.3); Carbon Dioxide 28 mEq/L (23-29); Chloride 103 mEq/L (98-107); Glucose 344 mg/dL (70-105); Magnesium 2.3 mg/dL (1.6-2.6); Osmolality,Calculated 302 (280-300); Potassium 4.9 mEq/L (3.5-5.1); Sodium 137 mEq/L (136-145); eGFR For African Americans > 60 (> 60); eGFR For Non-African Americans > 60 (> 60)
[2022-03-13] MEDS: predniSONE 20 MG TABLET PO SCH (09:05)
[2022-03-13] MEDS: Fluconazole 100 MG TABLET PO SCH (09:05)
[2022-03-13] MEDS: Lactobacillus 1 EACH CAP.SPRINK PO SCH ×2 (09:06→21:18)
[2022-03-13] MEDS: *HR* Metformin 500 MG TABLET PO SCH (09:06)
[2022-03-13] MEDS: Magnesium Oxide 400 MG TABLET PO SCH (09:06)
[2022-03-13] MEDS: Acetaminophen 325 MG TABLET PO PRN ×2 (09:06→21:17)
[2022-03-13] MEDS: GlipiZIDE 5 MG TABLET PO SCH ×2 (09:06→17:29)
[2022-03-13] MEDS: Divalproex (24 HR) 500 MG TABLET PO SCH ×2 (09:07→21:17)
[2022-03-13] MEDS: Nystatin POWDER 30 GM BOTTLE TP SCH ×3 (09:07→21:22)
[2022-03-13] MEDS: Nystatin Cream 15 GM TUBE TP SCH ×3 (09:07→21:20)
[2022-03-13] MEDS: Apixaban 5 MG TABLET PO SCH ×2 (09:07→21:18)
[2022-03-13] MEDS: CANNABIDIOL 100 MG/ML PO SCH ×2 (09:08→21:20)
[2022-03-13] MEDS: Insulin LISPRO 300 UNITS/3 ML VIAL SUBQ SCH ×4 (09:22→21:22)
[2022-03-13] MEDS: clonazePAM 0.5 MG TABLET PO PRN (21:17)
[2022-03-14] MEDS: Magnesium Oxide 400 MG TABLET PO SCH (08:35)
[2022-03-14] MEDS: *HR* Metformin 500 MG TABLET PO SCH ×2 (08:35→17:06)
[2022-03-14] MEDS: Apixaban 5 MG TABLET PO SCH ×2 (08:35→21:50)
[2022-03-14] MEDS: Lactobacillus 1 EACH CAP.SPRINK PO SCH ×2 (08:35→21:51)
[2022-03-14] MEDS: Divalproex (24 HR) 500 MG TABLET PO SCH ×2 (08:36→21:50)
[2022-03-14] MEDS: Fluconazole 100 MG TABLET PO SCH (08:36)
[2022-03-14] MEDS: GlipiZIDE 5 MG TABLET PO SCH ×2 (08:36→17:06)
[2022-03-14] MEDS: Nystatin POWDER 30 GM BOTTLE TP SCH ×3 (08:37→21:51)
[2022-03-14] MEDS: Nystatin Cream 15 GM TUBE TP SCH ×3 (08:37→21:52)
[2022-03-14] MEDS: CANNABIDIOL 100 MG/ML PO SCH ×2 (08:38→23:35)
[2022-03-14] MEDS: Insulin LISPRO 300 UNITS/3 ML VIAL SUBQ SCH ×4 (08:38→21:33)
[2022-03-14] MEDS ORDERED: MOM Conc 10 ML UD.LIQ PO ONE (14:22)
[2022-03-14] MEDS ORDERED: MOM Conc 10 ML UD.LIQ PO PRN (14:22)
[2022-03-14] MEDS ORDERED: Bisacodyl 10 MG RECTAL SUPPOSITORY RC SCH (20:00)
[2022-03-14] MEDS: Acetaminophen 325 MG TABLET PO PRN (21:51)
[2022-03-15] MEDS: Insulin LISPRO 300 UNITS/3 ML VIAL SUBQ SCH ×4 (08:46→20:42)
[2022-03-15] MEDS: *HR* Metformin 500 MG TABLET PO SCH ×2 (08:47→17:19)
[2022-03-15] MEDS: GlipiZIDE 5 MG TABLET PO SCH ×2 (08:47→17:19)
[2022-03-15] MEDS: CANNABIDIOL 100 MG/ML PO SCH ×2 (08:48→20:57)
[2022-03-15] MEDS: Bisacodyl 10 MG RECTAL SUPPOSITORY RC SCH (09:01)
[2022-03-15] MEDS: Magnesium Oxide 400 MG TABLET PO SCH (09:01)
[2022-03-15] MEDS: Lactobacillus 1 EACH CAP.SPRINK PO SCH ×2 (09:01→20:45)
[2022-03-15] MEDS: Divalproex (24 HR) 500 MG TABLET PO SCH ×2 (09:01→20:45)
[2022-03-15] MEDS: Apixaban 5 MG TABLET PO SCH ×2 (09:01→20:45)
[2022-03-15] MEDS: Nystatin Cream 15 GM TUBE TP SCH ×3 (09:02→20:56)
[2022-03-15] MEDS: Nystatin POWDER 30 GM BOTTLE TP SCH ×3 (09:02→20:56)
[2022-03-15] MEDS: Acetaminophen 325 MG TABLET PO PRN (20:45)
[2022-03-15] MEDS: hydrOXYzine pamoate 25 MG CAPSULE PO PRN (20:45)
[2022-03-15] MEDS: clonazePAM 0.5 MG TABLET PO PRN (20:46)
[2022-03-16] MEDS: CANNABIDIOL 100 MG/ML PO SCH ×2 (07:21→21:47)
[2022-03-16] MEDS: Insulin LISPRO 300 UNITS/3 ML VIAL SUBQ SCH ×4 (07:21→22:33)
[2022-03-16] MEDS: GlipiZIDE 5 MG TABLET PO SCH ×2 (07:22→16:56)
[2022-03-16 07:28] LABS: Hematocrit 28.9 % (37.5-50.1); Hemoglobin 9.5 g/dL (12.9-16.9); Mean Corpuscular HGB Conc 32.9 g/dL (31.6-35.5); Mean Corpuscular Hemoglobin 31.4 pg (28.0-33.3); Mean Corpuscular Volume 95.4 fL (83.0-100.0); Mean Platelet Volume 10.4 fL (9.4-12.4); Platelet Count 206 K/mcL (140-400); Red Blood Count 3.03 M/mcL (4.19-5.50); Red Cell Distribution Width 14.9 % (11.5-14.5); White Blood Count 4.8 K/mcL (4.3-11.1)
[2022-03-16 07:55] LABS: Alanine Aminotransferase 8 Units/L (7-52); Albumin 2.6 g/dL (3.5-5.7); Albumin/Globulin Ratio 0.9 (1.1-2.2); Alkaline Phosphatase 51 Units/L (34-104); Aspartate Amino Transferase 9 Units/L (13-39); BUN/Creatinine Ratio 17 (6-26); Bilirubin,Total 0.4 mg/dL (0.3-1.0); Blood Urea Nitrogen 19 mg/dL (8-23); Calcium 8.7 mg/dL (8.6-10.3); Carbon Dioxide 32 mEq/L (23-29); Chloride 106 mEq/L (98-107); Globulin 2.9 g/dL (2.4-3.5); Glucose 105 mg/dL (70-105); Magnesium 1.9 mg/dL (1.6-2.6); Osmolality,Calculated 299 (280-300); Sodium 143 mEq/L (136-145); Total Protein 5.5 g/dL (6.4-8.9); eGFR For African Americans > 60 (> 60); eGFR For Non-African Americans > 60 (> 60)
[2022-03-16] MEDS: Lactobacillus 1 EACH CAP.SPRINK PO SCH ×2 (09:06→21:26)
[2022-03-16] MEDS: *HR* Metformin 500 MG TABLET PO SCH ×2 (09:06→17:03)
[2022-03-16] MEDS: Magnesium Oxide 400 MG TABLET PO SCH (09:06)
[2022-03-16] MEDS: Divalproex (24 HR) 500 MG TABLET PO SCH ×2 (09:07→21:27)
[2022-03-16] MEDS: Apixaban 5 MG TABLET PO SCH ×2 (09:07→21:28)
[2022-03-16] MEDS: Bisacodyl 10 MG RECTAL SUPPOSITORY RC SCH ×2 (09:07→10:37)
[2022-03-16] MEDS: Nystatin POWDER 30 GM BOTTLE TP SCH ×3 (09:07→21:38)
[2022-03-16] MEDS: Nystatin Cream 15 GM TUBE TP SCH ×3 (09:07→21:46)
[2022-03-16] MEDS: hydrOXYzine pamoate 25 MG CAPSULE PO PRN (13:34)
[2022-03-16] MEDS: Acetaminophen 325 MG TABLET PO PRN ×2 (13:34→21:37)
[2022-03-17] MEDS: Acetaminophen 325 MG TABLET PO PRN ×2 (04:34→20:47)
[2022-03-17] MEDS: Insulin LISPRO 300 UNITS/3 ML VIAL SUBQ SCH ×4 (08:53→19:23)
[2022-03-17] MEDS: CANNABIDIOL 100 MG/ML PO SCH ×2 (08:53→20:30)
[2022-03-17] MEDS: GlipiZIDE 5 MG TABLET PO SCH ×2 (08:54→16:25)
[2022-03-17] MEDS: Magnesium Oxide 400 MG TABLET PO SCH (08:55)
[2022-03-17] MEDS: Nystatin Cream 15 GM TUBE TP SCH ×3 (08:56→20:30)
[2022-03-17] MEDS: Divalproex (24 HR) 500 MG TABLET PO SCH ×2 (08:56→20:29)
[2022-03-17] MEDS: Nystatin POWDER 30 GM BOTTLE TP SCH ×3 (08:56→20:30)
[2022-03-17] MEDS: *HR* Metformin 500 MG TABLET PO SCH ×2 (08:57→16:25)
[2022-03-17] MEDS: Lactobacillus 1 EACH CAP.SPRINK PO SCH ×2 (08:57→20:30)
[2022-03-17] MEDS: Apixaban 5 MG TABLET PO SCH ×2 (08:57→20:29)
[2022-03-17] MEDS: Bisacodyl 10 MG RECTAL SUPPOSITORY RC SCH (08:57)
[2022-03-17] MEDS: clonazePAM 0.5 MG TABLET PO PRN (20:47)
[2022-03-18 07:03] VITALS: BP 107/62; PULSE 57; RESP 15; TEMP 98.1; O2SAT 99
[2022-03-18] MEDS: Insulin LISPRO 300 UNITS/3 ML VIAL SUBQ SCH ×3 (08:19→16:56)
[2022-03-18] MEDS: Divalproex (24 HR) 500 MG TABLET PO SCH (08:19)
[2022-03-18] MEDS: hydrOXYzine pamoate 25 MG CAPSULE PO PRN (08:19)
[2022-03-18] MEDS: clonazePAM 0.5 MG TABLET PO PRN (08:20)
[2022-03-18] MEDS: Apixaban 5 MG TABLET PO SCH (08:20)
[2022-03-18] MEDS: *HR* Metformin 500 MG TABLET PO SCH ×2 (08:20→16:59)
[2022-03-18] MEDS: Lactobacillus 1 EACH CAP.SPRINK PO SCH (08:20)
[2022-03-18] MEDS: Magnesium Oxide 400 MG TABLET PO SCH (08:20)
[2022-03-18] MEDS: Nystatin POWDER 30 GM BOTTLE TP SCH ×2 (08:21→16:01)
[2022-03-18] MEDS: Bisacodyl 10 MG RECTAL SUPPOSITORY RC SCH (08:21)
[2022-03-18] MEDS: CANNABIDIOL 100 MG/ML PO SCH (08:21)
[2022-03-18] MEDS: Nystatin Cream 15 GM TUBE TP SCH ×2 (08:21→16:01)
[2022-03-18] MEDS: GlipiZIDE 5 MG TABLET PO SCH ×2 (08:21→17:00)
[2022-03-18] MEDS ORDERED: Sennosides 8.6 MG TABLET PO SCH (21:00)
[2022-03-18] MEDS ORDERED: Sennosides/Docusate Sodium TABLET PO SCH (21:00)
== END 2022-03-18 17:54 | disposition home health service (06) | DRG 57 ==
LOC: INPGRE 16:48
PROVIDERS: ADMIT Internal Medicine; ATTEND Internal Medicine

== ENCOUNTER 2022-04-19 11:47 | Observation (INO) ==
[2022-04-19] MEDS ORDERED: Iopamidol - 370 500 ML MLS IVP ONE (12:27)
[2022-04-19] MEDS ORDERED: Iopamidol - 370 500 ML MLS PO ONE (12:34)
[2022-04-19 13:14] LABS: Basophils % 0.5 %; Eosinophils # 0.2 K/mcL (0.0-0.6); Eosinophils % 2.8 %; Hemoglobin 10.6 g/dL (12.9-16.9); Immature Granulocytes % 0.2 % (0-4); Lymphocytes # 1.1 K/mcL (0.6-4.6); Mean Corpuscular HGB Conc 33.1 g/dL (31.6-35.5); Mean Corpuscular Hemoglobin 31.5 pg (28.0-33.3); Mean Platelet Volume 9.9 fL (9.4-12.4); Monocytes # 0.6 K/mcL (0.0-1.3); Monocytes % 9.4 %; Neutrophils # 4.3 K/mcL (1.6-8.9); Platelet Count 169 K/mcL (140-400); Red Blood Count 3.37 M/mcL (4.19-5.50); Red Cell Distribution Width 14.6 % (11.5-14.5); Segmented Neutrophils % 69.1 %; White Blood Count 6.2 K/mcL (4.3-11.1)
[2022-04-19 13:31] LABS: Alanine Aminotransferase 5 Units/L (7-52); Albumin 2.9 g/dL (3.5-5.7); Alkaline Phosphatase 47 Units/L (34-104); Aspartate Amino Transferase 10 Units/L (13-39); BUN/Creatinine Ratio 28 (6-26); Bilirubin,Total 0.3 mg/dL (0.3-1.0); Blood Urea Nitrogen 27 mg/dL (8-23); Calcium 8.9 mg/dL (8.6-10.3); Carbon Dioxide 28 mEq/L (23-29); Chloride 103 mEq/L (98-107); Globulin 2.8 g/dL (2.4-3.5); Glucose 205 mg/dL (70-105); Lipase 97 Units/L (11-82); Magnesium 1.7 mg/dL (1.6-2.6); Osmolality,Calculated 297 (280-300); Potassium 4.4 mEq/L (3.5-5.1); Sodium 138 mEq/L (136-145); Total Protein 5.7 g/dL (6.4-8.9); eGFR For African Americans > 60 (> 60); eGFR For Non-African Americans > 60 (> 60)
[2022-04-19] MEDS ORDERED: Ondansetron 4 MG/2 ML VIAL IVP PRN (16:13)
[2022-04-19] MEDS ORDERED: Naloxone 0.4 MG/ML INJ IVP PRN (16:13)
[2022-04-19] MEDS ORDERED: Melatonin 3 MG TABLET PO PRN (16:13)
[2022-04-19] MEDS ORDERED: Sennosides/Docusate Sodium TABLET PO PRN (16:16)
[2022-04-19] MEDS ORDERED: Simethicone 80 MG TAB.CHEW PO PRN (16:17)
[2022-04-19] MEDS: GlipiZIDE 5 MG TABLET PO SCH (18:41)
[2022-04-19] MEDS: Acetaminophen 325 MG TABLET PO PRN (18:42)
[2022-04-19] MEDS: polyethylene glycoL 3350 17 GM POWD.PACK PO SCH (18:43)
[2022-04-19] MEDS: 0.9 % Sodium Chloride 1,000 ML IVC SCH (18:43)
[2022-04-19] MEDS: Apixaban 5 MG TABLET PO SCH (22:04)
[2022-04-19] MEDS: Lactobacillus 1 EACH CAP.SPRINK PO SCH (22:04)
[2022-04-19] MEDS: clonazePAM 0.5 MG TABLET PO PRN (22:05)
[2022-04-19] MEDS: Nystatin Cream 15 GM TUBE TP SCH (22:05)
[2022-04-19] MEDS: Divalproex (24 HR) 500 MG TABLET PO SCH (22:05)
[2022-04-19] MEDS: CANNABIDIOL 100 MG/ML PO SCH (22:05)
[2022-04-20] MEDS: 0.9 % Sodium Chloride 1,000 ML IVC SCH (03:58)
[2022-04-20 08:08] LABS: Hematocrit 31.8 % (37.5-50.1); Hemoglobin 10.5 g/dL (12.9-16.9); Mean Corpuscular Hemoglobin 31.6 pg (28.0-33.3); Mean Corpuscular Volume 95.8 fL (83.0-100.0); Mean Platelet Volume 9.9 fL (9.4-12.4); Platelet Count 183 K/mcL (140-400); Red Blood Count 3.32 M/mcL (4.19-5.50); Red Cell Distribution Width 14.6 % (11.5-14.5)
[2022-04-20] MEDS: Acetaminophen 325 MG TABLET PO PRN ×2 (08:09→14:13)
[2022-04-20] MEDS: Divalproex (24 HR) 500 MG TABLET PO SCH ×2 (08:09→21:41)
[2022-04-20] MEDS: Apixaban 5 MG TABLET PO SCH ×2 (08:09→21:37)
[2022-04-20] MEDS: Lactobacillus 1 EACH CAP.SPRINK PO SCH ×2 (08:10→21:37)
[2022-04-20] MEDS: GlipiZIDE 5 MG TABLET PO SCH ×2 (08:10→17:17)
[2022-04-20] MEDS: Magnesium Oxide 400 MG TABLET PO SCH (08:10)
[2022-04-20] MEDS: Tolterodine LA (24 HR) 4 MG CAP.ER.24H PO SCH (08:10)
[2022-04-20] MEDS: Nystatin Cream 15 GM TUBE TP SCH ×3 (08:11→21:35)
[2022-04-20] MEDS: *HR* Metformin 500 MG TABLET PO SCH (08:11)
[2022-04-20] MEDS: polyethylene glycoL 3350 17 GM POWD.PACK PO SCH (08:11)
[2022-04-20] MEDS: clonazePAM 0.5 MG TABLET PO PRN ×2 (08:18→21:40)
[2022-04-20] MEDS: CANNABIDIOL 100 MG/ML PO SCH ×2 (08:21→23:36)
[2022-04-20] MEDS ORDERED: Propranolol LA (24 HR) 60 MG CAP.SA.24H PO SCH (09:00)
[2022-04-20 09:33] LABS: BUN/Creatinine Ratio 22 (6-26); Blood Urea Nitrogen 19 mg/dL (8-23); Calcium 8.9 mg/dL (8.6-10.3); Carbon Dioxide 29 mEq/L (23-29); Chloride 104 mEq/L (98-107); Glucose 84 mg/dL (70-105); Magnesium 1.9 mg/dL (1.6-2.6); Osmolality,Calculated 289 (280-300); Potassium 4.3 mEq/L (3.5-5.1); Sodium 139 mEq/L (136-145); eGFR For African Americans > 60 (> 60); eGFR For Non-African Americans > 60 (> 60)
[2022-04-20] MEDS ORDERED: 0.9 % Sodium Chloride 1,000 ML IVC SCH (15:00)
[2022-04-20] MEDS ORDERED: Bisacodyl 10 MG RECTAL SUPPOSITORY RC ONE (15:21)
[2022-04-21] MEDS: Acetaminophen 325 MG TABLET PO PRN (04:56)
[2022-04-21 07:50] LABS: Basophils % 0.4 %; Eosinophils # 0.3 K/mcL (0.0-0.6); Hematocrit 33.2 % (37.5-50.1); Immature Granulocytes % 0.6 % (0-4); Lymphocytes # 1.5 K/mcL (0.6-4.6); Lymphocytes % 28.5 %; Mean Corpuscular HGB Conc 33.1 g/dL (31.6-35.5); Mean Corpuscular Hemoglobin 31.7 pg (28.0-33.3); Mean Corpuscular Volume 95.7 fL (83.0-100.0); Mean Platelet Volume 9.7 fL (9.4-12.4); Monocytes # 0.6 K/mcL (0.0-1.3); Monocytes % 11.2 %; Neutrophils # 2.8 K/mcL (1.6-8.9); Platelet Count 168 K/mcL (140-400); Red Blood Count 3.47 M/mcL (4.19-5.50); Red Cell Distribution Width 14.5 % (11.5-14.5); Segmented Neutrophils % 54.3 %; White Blood Count 5.2 K/mcL (4.3-11.1)
[2022-04-21 08:08] LABS: BUN/Creatinine Ratio 18 (6-26); Blood Urea Nitrogen 16 mg/dL (8-23); Calcium 8.7 mg/dL (8.6-10.3); Carbon Dioxide 28 mEq/L (23-29); Chloride 106 mEq/L (98-107); Glucose 107 mg/dL (70-105); Osmolality,Calculated 290 (280-300); Potassium 4.3 mEq/L (3.5-5.1); Sodium 139 mEq/L (136-145); eGFR For African Americans > 60 (> 60); eGFR For Non-African Americans > 60 (> 60)
[2022-04-21] MEDS: GlipiZIDE 5 MG TABLET PO SCH (09:57)
[2022-04-21] MEDS: *HR* Metformin 500 MG TABLET PO SCH (09:58)
[2022-04-21] MEDS: Lactobacillus 1 EACH CAP.SPRINK PO SCH (10:06)
[2022-04-21] MEDS: Divalproex (24 HR) 500 MG TABLET PO SCH (10:06)
[2022-04-21] MEDS: Magnesium Oxide 400 MG TABLET PO SCH (10:06)
[2022-04-21] MEDS: CANNABIDIOL 100 MG/ML PO SCH (10:07)
[2022-04-21] MEDS: Apixaban 5 MG TABLET PO SCH (10:07)
[2022-04-21] MEDS: polyethylene glycoL 3350 17 GM POWD.PACK PO SCH (10:07)
[2022-04-21] MEDS: Tolterodine LA (24 HR) 4 MG CAP.ER.24H PO SCH (10:07)
[2022-04-21] MEDS: Nystatin Cream 15 GM TUBE TP SCH ×2 (10:16→15:52)
[2022-04-21 15:51] VITALS: BP 119/70; PULSE 65; RESP 20; TEMP 97.8; O2SAT 98
[2022-04-21] MEDS: clonazePAM 0.5 MG TABLET PO PRN (15:51)
== END 2022-04-21 17:43 | disposition home health service (06) ==
LOC: EMEROOGRE 11:47 → INPGRE 11:47
PROVIDERS: ADMIT Family Medicine; ATTEND Family Medicine